=== PATIENT | female | born 1995 | race Caucasian/White ===

== ENCOUNTER 2023-03-03 00:03 | Emergency (ER) | payer MEDICAID ==
[~2023-03-03] VITALS: Ht 167.6 cm; Wt 65.8 kg
[2023-03-03 00:35] VITALS: BP 109/76; TEMP 98.1; O2SAT 100
[2023-03-03] MEDS ORDERED: LEVE1000 PO ×2 (00:41→01:16)
[2023-03-03] MEDS ORDERED: OXCA600T5 PO ×2 (00:41→01:16)
[2023-03-03] MEDS ORDERED: FOLI1CAP7 PO ×2 (00:41→01:16)
== END 2023-03-03 00:47 | disposition home or self-care (01) ==
LOC: ER 00:06
DX: G40.909 Epilepsy, unspecified, not intractable, without status epilepticus (principal); Z76.0 Encounter for issue of repeat prescription; Z79.899 Other long term (current) drug therapy; Z88.1 Allergy status to other antibiotic agents

== ENCOUNTER 2023-10-23 00:23 | Emergency (ER) | payer MEDICAID ==
[~2023-10-23] VITALS: Ht 167.6 cm; Wt 65.8 kg
[~2023-10-23 00:23] MED LIST: FOLI1CAP7 PO; LEVE1000 PO; OXCA600T5 PO
[2023-10-23 00:30] VITALS: BP 134/84; TEMP 98.5; O2SAT 99
[2023-10-23] MEDS ORDERED: AMOX-430 PO (01:34)
[2023-10-23] MEDS ORDERED: ACET-3117 PO (01:34)
[2023-10-23] MEDS ORDERED: AMOX/CLAVULANATE 875 MG TABLET ONE (01:36)
[2023-10-23] MEDS: AMOX/CLAVULANATE 875 MG TABLET PO ONE (01:38)
== END 2023-10-23 02:05 | disposition home or self-care (01) ==
LOC: ER 00:24
DX: O90.89 Other complications of the puerperium, not elsewhere classified (principal); R60.0 Localized edema; K08.89 Other specified disorders of teeth and supporting structures; G40.909 Epilepsy, unspecified, not intractable, without status epilepticus; Z88.8 Allergy status to other drugs, medicaments and biological substances

== ENCOUNTER 2024-07-08 22:57 | Emergency (ER) | payer MEDICAID ==
[~2024-07-08] VITALS: Ht 167.6 cm; Wt 63.5 kg
[~2024-07-08 22:57] MED LIST changes: +ACET-3117 PO; +AMOX-430 PO
[2024-07-08 23:59] LABS: APPEARANCE,URINE CLEAR (CLEAR); BILIRUBIN,URINE NEGATIVE (NEGATIVE); BLOOD, URINE NEGATIVE Ery/uL (NEGATIVE); COLOR,URINE YELLOW (YELLOW); KETONES,URINE NEGATIVE (NEGATIVE); LEUKOCYTE ESTERASE ,URINE NEGATIVE (NEGATIVE); NITRITE, URINE NEGATIVE (NEGATIVE); PROTEIN,URINE NEGATIVE (NEGATIVE); UGLUCOSE NEGATIVE (NEGATIVE); UROBILINOGEN,URINE 0.2 EU/dL (0.2)
[2024-07-09 00:02] LABS: PREGNANCY TEST URINE QUAL NEGATIVE (NEGATIVE)
[2024-07-09] MEDS: IV NS 0.9% 1,000 ML BAG IV ONE (00:19)
[2024-07-09] MEDS: ONDANSETRON HCL/PF 4 MG/2 ML VIAL IVP ONE (00:19)
[2024-07-09] MEDS ORDERED: ONDANSETRON HCL/PF 4 MG/2 ML VIAL ONE (00:19)
[2024-07-09 00:28] LABS: BASOPHILS % (AUTO) 0.9 % (0.0-2.0); EOSINOPHILS # (AUTO) 0.1 K/uL (0.0-0.7); EOSINOPHILS % (AUTO) 2.7 % (0.0-6.0); HEMATOCRIT 38 % (33-45); HEMOGLOBIN 12.8 g/dL (11.5-14.8); LYMPHOCYTES # (AUTO) 1.7 K/uL (0.8-4.8); LYMPHOCYTES % (AUTO) 45.2 % (20.0-44.0); MEAN CORPUSCULAR HEMOGLOBIN 29 PG (26.0-33.0); MEAN CORPUSCULAR HGB CONC 34 g/dl (31.0-36.0); MEAN CORPUSCULAR VOLUME 85 fL (82-100); MONOCYTES # (AUTO) 0.4 K/uL (0.1-1.30); MONOCYTES % (AUTO) 12.1 % (2.0-12.0); NEUTROPHILS # (AUTO) 1.4 K/uL (1.8-8.9); NEUTROPHILS % (AUTO) 39.1 % (43.0-81.0); PLATELET COUNT (AUTO) 179 K/uL (150-450); RED BLOOD CELL COUNT(AUTO) 4.47 MIL/uL (4.0-5.2); RED CELL DISTRIBUTION WIDTH 14.8 % (11.5-15.0); WHITE BLOOD COUNT (AUTO) 3.7 K/uL (4.3-11.0)
[2024-07-09 00:52] LABS: ALBUMIN 3.3 g/dL (3.4-5.0); BILIRUBIN,DIRECT 0.1 mg/dL (0.0-0.2); BILIRUBIN,TOTAL 0.2 mg/dL (0.2-1.0); CREATININE 0.8 mg/dL (0.6-1.3); POTASSIUM 3.2 mmol/L (3.5-5.1); TOTAL PROTEIN, SERUM 6.6 g/dL (6.4-8.2)
[2024-07-09] MEDS ORDERED: ONDA4TAB11 PO (01:17)
[2024-07-09] MEDS ORDERED: FAMO20TA8 PO (01:17)
[2024-07-09] MEDS: FAMOTIDINE (20 MG) 20 MG TABLET PO ONE (01:31)
[2024-07-09] MEDS: POTASSIUM CHLORIDE 20 MEQ TAB.PRT.SR PO ONE (01:31)
[2024-07-09 01:32] VITALS: BP 122/80; TEMP 98.4; O2SAT 99
== END 2024-07-09 01:32 | disposition home or self-care (01) ==
LOC: ER 23:01
DX: R10.13 Epigastric pain (principal); R11.0 Nausea; E86.0 Dehydration; G40.909 Epilepsy, unspecified, not intractable, without status epilepticus; Z79.899 Other long term (current) drug therapy
CPT/HCPCS: 99283; 85025; 84703; 81003; 36415; 96374; 96361; 80048; 83690; 80076; J2405

== ENCOUNTER 2024-10-01 03:57 | Emergency (ER) | payer MEDICAID ==
[~2024-10-01] VITALS: Ht 162.6 cm; Wt 68.0 kg
[~2024-10-01 03:57] MED LIST changes: +FAMO20TA8 PO; +ONDA4TAB11 PO
[2024-10-01 04:24] VITALS: BP 130/75
[2024-10-01] MEDS ORDERED: POLY10DR OP (04:26)
[2024-10-01 04:42] VITALS: O2SAT 100
== END 2024-10-01 04:43 | disposition home or self-care (01) ==
LOC: ER 04:01
DX: H10.021 Other mucopurulent conjunctivitis, right eye (principal); J02.9 Acute pharyngitis, unspecified; G40.909 Epilepsy, unspecified, not intractable, without status epilepticus; Z79.899 Other long term (current) drug therapy; Z88.8 Allergy status to other drugs, medicaments and biological substances

== ENCOUNTER 2024-12-18 23:46 | Emergency (ER) | payer MEDICAID ==
[~2024-12-18] VITALS: Ht 165.1 cm; Wt 68.0 kg
[~2024-12-18 23:46] MED LIST changes: +POLY10DR OP
[2024-12-19 01:35] VITALS: BP 122/71; TEMP 98
[2024-12-19] MEDS ORDERED: AMOX500T2 PO (01:42)
[2024-12-19 01:46] VITALS: O2SAT 98
== END 2024-12-19 01:47 | disposition home or self-care (01) ==
LOC: ER 23:59
DX: K08.89 Other specified disorders of teeth and supporting structures (principal); G40.909 Epilepsy, unspecified, not intractable, without status epilepticus; Z79.899 Other long term (current) drug therapy; Z88.8 Allergy status to other drugs, medicaments and biological substances

== ENCOUNTER 2025-01-30 04:09 | Emergency (ER) | payer MEDICAID ==
[~2025-01-30 04:09] MED LIST changes: +AMOX500T2 PO
== END 2025-01-30 06:14 | disposition left against medical advice (07) ==
LOC: ER 04:37
DX: Z53.21 Procedure and treatment not carried out due to patient leaving prior to being seen by health care provider (principal)